=== PATIENT | female | born 1965 | race Caucasian/White ===

== ENCOUNTER 2018-08-10 00:41 | Emergency (ER) | payer BC, OTHER ==
[~2018-08-10] VITALS: Ht 152.4 cm; Wt 77.1 kg
[2018-08-10 01:38] VITALS: BP 107/84
== END 2018-08-10 04:24 | disposition left against medical advice (07) ==
LOC: ER 00:41
DX: R11.2 Nausea with vomiting, unspecified (principal); R19.7 Diarrhea, unspecified; Z53.21 Procedure and treatment not carried out due to patient leaving prior to being seen by health care provider